=== PATIENT | female | born 1980 | race Caucasian/White ===

== ENCOUNTER 2020-09-05 20:16 | Inpatient (IN) | payer BC ==
[~2020-09-05] VITALS: Ht 180.3 cm; Wt 120.2 kg
[~2020-09-05 20:16] MED LIST: LEVO200 PO; PNV91TAB3 PO
[2020-09-05] MEDS ORDERED: PROMETHAZINE HCL 25 MG/ML 1ML AMPULE IM PRN (20:30)
[2020-09-05] MEDS ORDERED: DINOPROSTONE 10 MG VAGINAL SUPP VG SCH (20:30)
[2020-09-05] MEDS ORDERED: LACTATED RINGERS 1000ML 1,000 ML IV PRN (20:30)
[2020-09-05] MEDS ORDERED: OXYTOCIN-LR 20 UNITS/1000 ML 1,000 ML IV SCH (20:30)
[2020-09-05] MEDS ORDERED: MEPERIDINE-PF 50 MG/ML SYG IVP PRN (20:30)
[2020-09-05 21:30] LABS: APPEARANCE,URINE Clear (CLEAR); BILIRUBIN,URINE Negative (NEGATIVE); COLOR,URINE Yellow (YELLOW); GLUCOSE, URINE (UA) Negative (NEGATIVE); KETONES,URINE Negative (NEGATIVE); LEUKOCYTE ESTERASE ,URINE Trace (NEGATIVE); NITRATE,URINE Negative (NEGATIVE); OCCULT BLOOD,URINE Negative (NEGATIVE); PH,URINE 6.5 (5.0-8.0); PROTEIN,URINE Negative (NEGATIVE); UROBILINOGEN,URINE 0.2 mg/dL (0.2-1.0)
[2020-09-05 21:36] VITALS: BP 130/69
[2020-09-05 21:47] LABS: HEMATOCRIT 31.1 % (36-48); MEAN CORPUSCULAR HEMOGLOBIN 27.1 pg (27.0-33.0); MEAN CORPUSCULAR HGB CONC 32.8 g/dL (32.0-36.0); MEAN CORPUSCULAR VOLUME 82.7 fL (79-99); NUCLEATED RED BLOOD CELLS 0.2 % (0.0-0.19); RED BLOOD CELL COUNT(AUTO) 3.76 MIL/uL (4.00-5.50)
[2020-09-05 22:04] LABS: RBC,URINE 0-1 /HPF (0-1)
[2020-09-05 22:05] LABS: BACTERIA,URINE Few /HPF (None Seen); SQUAMOUS EPITHELIAL CELL,UR Few /HPF (0-2)
[2020-09-06] MEDS ORDERED: OXYTOCIN-LR 20 UNITS/1000 ML 1,000 ML IV SCH (10:30)
[2020-09-06] MEDS ORDERED: CALDOLOR 800MG+NS 250ML 250 ML IV PRN (11:30)
[2020-09-06] MEDS ORDERED: CEFAZOLIN SODIUM 1 GM VIAL IVP PRN (11:30)
[2020-09-06] MEDS ORDERED: CEFAZOLIN SODIUM 1 GM VIAL ONE (11:36)
[2020-09-06] MEDS ORDERED: CALDOLOR 800MG+NS 250ML 250 ML IV ONE (11:36)
[2020-09-06] MEDS ORDERED: DEXAMETHASONE SOD PHOSPHATE 10MG/ML 1ML VIAL ONE (12:11)
[2020-09-06] MEDS ORDERED: ONDANSETRON 4MG INJ ONE (12:11)
[2020-09-06] MEDS ORDERED: PHENYLEPHRINE HCL 10 MG/ML 1ML VIAL IV ONE (12:11)
[2020-09-06] MEDS ORDERED: OXYTOCIN 10 UNIT/1ML 10ML VIAL ONE (12:11)
[2020-09-06] MEDS ORDERED: MORPHINE PF 100MG/10ML AMP IV ONE (12:12)
[2020-09-06] MEDS ORDERED: EPHEDRINE SULFATE 50 MG/ML AMPULE ONE (12:12)
[2020-09-06] MEDS ORDERED: FENTANYL CITRATE PF 50 MCG/1 ML 2ML VIAL ONE (13:02)
[2020-09-06] MEDS ORDERED: MEPERIDINE-PF 75 MG/ML SYG IM PRN (13:45)
[2020-09-06] MEDS ORDERED: 0.9%NACL 10ML VIAL IVP PRN (13:45)
[2020-09-06] MEDS ORDERED: PROMETHAZINE HCL 25 MG/ML 1ML AMPULE IM PRN (13:45)
[2020-09-06] MEDS ORDERED: DEXTROSE 5 %-0.45 % NACL 1,000 ML IV PRN (13:45)
[2020-09-06 15:00] VITALS: BP 120/66
[2020-09-06] MEDS ORDERED: EPHEDRINE SULFATE 50 MG/ML AMPULE IVP PRN (16:15)
[2020-09-06] MEDS ORDERED: NALOXONE HCL 0.4 MG/1 ML ML IVP PRN ×2 (16:15)
[2020-09-06] MEDS ORDERED: DiphenhydrAMINE HCL 50 MG/ML VIAL IVP PRN (16:15)
[2020-09-06] MEDS ORDERED: ONDANSETRON 4MG INJ IVP PRN (16:15)
[2020-09-06 19:57] VITALS: BP 122/76
[2020-09-06] MEDS: CALDOLOR 800MG+NS 250ML 250 ML IV SCH (21:51)
[2020-09-06 23:37] VITALS: BP 126/56
[2020-09-07] MEDS ORDERED: ACETAMINOPHEN WITH CODEINE 1 TAB TAB PO PRN (02:30)
[2020-09-07 03:17] VITALS: BP 111/63
[2020-09-07] MEDS: CALDOLOR 800MG+NS 250ML 250 ML IV SCH (05:45)
[2020-09-07 06:47] LABS: HEMATOCRIT 28.4 % (36-48); MEAN CORPUSCULAR HEMOGLOBIN 27.5 pg (27.0-33.0); MEAN CORPUSCULAR HGB CONC 32.7 g/dL (32.0-36.0); RED BLOOD CELL COUNT(AUTO) 3.38 MIL/uL (4.00-5.50); RED CELL DISTRIBUTION WIDTH 14.1 % (11.0-15.5); WHITE BLOOD COUNT (AUTO) 14.5 K/uL (4.8-10.8)
[2020-09-07 07:47] VITALS: BP 105/61
[2020-09-07 08:14] LABS: HEPATITIS Bs ANTIGEN SCREEN P Negative (Negative)
[2020-09-07] MEDS ORDERED: SIMETHICONE 80 MG TAB.CHEW PO PRN (09:45)
[2020-09-07] MEDS ORDERED: ACETAMINOPHEN 500 MG TABLET PO PRN (09:45)
[2020-09-07] MEDS ORDERED: IBUPROFEN 600 MG TABLET PO PRN (09:45)
[2020-09-07] MEDS ORDERED: BISACODYL 10 MG SUPP.RECT RC PRN (09:45)
[2020-09-07] MEDS ORDERED: HYDROCODONE/ACETAMINOPHEN 5/325 MG TAB PO PRN (09:45)
[2020-09-07 11:54] VITALS: BP 104/61
[2020-09-07] MEDS ORDERED: DOCUSATE SODIUM 100 MG CAP PO SCH (21:00)
== END 2020-09-07 14:25 | disposition home or self-care (01) | DRG 785 ==
LOC: LDH 20:16 → WSH 09-06 15:09 → PREOBSVTOIN 09-07 20:12
PROVIDERS: ADMIT Obstetrics & Gynecology; ATTEND Obstetrics & Gynecology
PROC: 0UB70ZZ Excision of Bilateral Fallopian Tubes, Open Approach (ICD-10-PCS; 2020-09-06)
PROC: 10D00Z1 Extraction of Products of Conception, Low, Open Approach (ICD-10-PCS; principal; 2020-09-06 12:00)
DX: O33.9 Maternal care for disproportion, unspecified (principal); O36.63X0 Maternal care for excessive fetal growth, third trimester, not applicable or unspecified; O32.4XX0 Maternal care for high head at term, not applicable or unspecified; O69.81X0 Labor and delivery complicated by cord around neck, without compression, not applicable or unspecified; Z3A.39 39 weeks gestation of pregnancy; Z37.0 Single live birth; Z30.2 Encounter for sterilization
CPT/HCPCS: 36415; 59510; 76805; 81001; 85027; 86592; 86850; 86900; 86901; 87340; A4344; G0378; J0690; J1100; J1741; J2274; J2370; J2405; J2590; J3010; J3490; J7120